=== PATIENT | male | born 1980 | race Caucasian/White ===

== ENCOUNTER 2024-03-06 08:14 | Outpatient (CLI) | payer OTHER, SELFPAY ==
--- OUTSIDE RECORDS SUMMARY | 2024-03-15 12:35 | XMS_ITS | Encounter Summary ---
Author Name Unknown Organization [facility] Address [address] [place] [address] Care Team Providers Care Yardage Control Operator Name Role Phone No Ref-Primary, Physician Primary Care Provider Reason for Visit * Reason Onset Date Comments MH/CD Inpatient 06/06/2023 Encounter Details Date Type Department Care Team ([facility] Contact Info) Description 06/06/2023 Telephone [facility] Behavioral Health Intake [address] [place] [phone] Generic, Behavioral Intake, MD MH/CD Inpatient Social History Tobacco Use Types Packs/Day Years Used Date Smoking Tobacco: Every Day Cigarettes Vaping Device Smokeless Tobacco: Never Alcohol Use Standard Drinks/Week Comments Yes 0 (1 standard drink = 0.6 oz pur e alcohol) daily Sex and Gender Information Value Date Recorded Sex Assigned at Not on file Gender Identity Not on file Sexual Orientation Not on file COVID-19 Exposure Response Date Recorded In the last 10 days, have yo u been in contact with someone who was confirmed or suspected to have Coronavirus/COVID-19? No / Unsure 06/06/2023 2:16 PM CDT documented as of this encounter Miscellaneous Notes * Telephone Encounter - Kathie Carvalho Prabhu - 06/06/2023 6:49 PM CDT S: [facility] , Provider Dr Barnhart calling at 6:30 pm with clinical on a 43 year old/Male presenting for alcohol detox. B: Pt presents for ETOH detox. Currently reports drinking 20 ounces vodka daily for years. Patient reports last use was 1 pm. Pt SAV: .26 Pt denies hx of DT Pt denies hx of seizures. Last seizure: N/A Pt endorsing the following symptoms of withdrawal: Shaky MSSA Score: Not done at this time Pt denies acute mental health or medical concerns. Pt denies other drug use: None Amount/frequency: N/A Does Pt have a detox care plan in [facility]? no Does pt present with specific needs, assistive devices, or exclusionary criteria? None Is the patient ambulating, eating and drinking in the ED? yes A: Pt meets criteria to be presented for IP detox admission. Patient is voluntary COVID Symptoms: No If yes, COVID test required Utox: Negative CMP: Abnormalities: Chloride 91, Anion 24, AST 162, ALT 150 CBC: WNL HCG: N/A R: Patient cleared and ready for behavioral bed placement: Yes Pt is meeting criteria for presentation to [facility] documented in this encounter Plan of Treatment Not on file documented as of this encounter Visit Diagnoses Not on filedocumented in this encounter Care Teams Yardage Control Operator Relationship Specialty Start Date End Date No Ref-Primary, Physician PCP - General 06/06/21 documented as of this encounter
--- OUTSIDE RECORDS SUMMARY | 2024-03-15 12:35 | XMS_ITS | Clinical Summary ---
Author Name Unknown Organization [facility] Address [address] [place] [address] Care Team Providers Care Investigator Utility Bill Complaints Name Role Phone No Ref-Primary, Physician Primary Care Provider Allergies No known active allergies Medications Medication Sig Dispensed Refills Start Date End Date Status cyclobenzaprine (FLEXERIL) 10 MG tablet TAKE 1/2 TO 1 TAB BY MOUTH AT BEDTIME NEEDED 04/13/2023 Active traZODone (DESYREL) 50 MG tablet Take 50 mg by mouth nightly as needed 03/14/2023 Active valACYclovir (VALTREX) 1000 mg tablet Take 2 tablets by mouth 2 times daily 05/20/2023 Active nicotine (NICODERM CQ) 21 MG/24HR 24 hr patchIndications:Alco hol dependence with uncomplicated intoxication (H) Place 1 patch onto the skin daily 30 patch 06/09/2023 Active multivitamin w/minerals (THERA-VIT-M) tabletIndications:Alc ohol dependence with uncomplicated intoxication (H) Take 1 tablet by mouth daily 30 tablet 06/09/2023 Active hydrOXYzine (ATARAX) 25 MG tabletIndications:Alc ohol dependence with uncomplicated intoxication (H) Take 1 tablet (25 mg) by mouth every 4 hours as needed for anxiety 30 tablet 1 06/08/2023 Active thiamine (B-1) 100 MG tabletIndications:Alc ohol dependence with uncomplicated intoxication (H) Take 1 tablet (100 mg) by mouth daily 30 tablet 06/09/2023 Active nicotine (NICORETTE) 2 MG gumIndications:Alcoho l dependence with uncomplicated intoxication (H) Place 1 each (2 mg) inside cheek every hour as needed for other (nicotine withdrawal symptoms) 30 each 06/08/2023 Active Active Problems Problem Noted Date Diagnosed Date Alcohol dependence with uncomplicated intoxicati on 06/06/2023 Migraines 06/06/2021 Social History Tobacco Use Types Packs/Day Years Used Date Smoking Tobacco: Every Day Cigarettes Vaping Device Smokeless Tobacco: Never Tobacco Cessation:Ready to Q uit: Not Asked; Counseling Given: Not Answered Alcohol Use Standard Drinks/Week Comments Yes 0 (1 standard drink = 0.6 oz pur e alcohol) daily Adolescent Education Answer Date Record ed Getting School Help Needed Not on file 08/13 Sex and Gender Information Value Date Recorded Sex Assigned at Not on file Gender Identity Not on file Sexual Orientation Not on file Last Filed Vital Signs Vital Sign Reading Time Taken Comments Blood Pressure 143/83 06/08/2023 11:37 AM CDT Pulse 83 06/08/2023 11:37 AM CDT Temperature 36.3 ??C (97.3 ??F) 06/08/2023 11:37 AM C DT Respiratory Rate 16 06/08/2023 11:37 AM CDT Oxygen Saturation 96% 06/08/2023 7:55 AM CDT Inhaled Oxygen Concentration - - Weight 84.1 kg (185 lb 6.5 oz) 06/06/2023 8:30 P M CDT Height 180.3 cm (5' 11) 06/06/2023 8:30 PM CDT Body Mass Index 25.86 06/06/2023 8:30 PM CDT Plan of Treatment Health Maintenance Due Date Last Done Comments ADVANCE CARE PLANNING 1979 ANNUAL REVIEW OF HM ORDERS 1979 CT COLONOGRAPHY 1979 FIT 1979 FLEX SIG 1979 NICOTINE/TOBACCO CESSATION COUNSELING Q 1 YR 1979 YEARLY PREVENTIVE VISIT 1979 sDNA (Cologuard) 1979 Pneumococcal Vaccine: Pediat rics (0 to 5 Years) and At-Risk Patients (6 to 64 Years) (1 of 2 - PCV) 1985 COLONOSCOPY 1989 COLORECTAL CANCER SCREENING 1989 HIV SCREENING 1994 HEPATITIS B IMMUNIZATION (2 of 3 - 19+ 3-dose series) 09/25/2002 08/28/2002 DTAP/TDAP/TD IMMUNIZATION (1 - Tdap) 01/21/2004 COVID-19 Vaccine ( - 2022-2 4 season) 2023 INFLUENZA VACCINE (#1) 2023 10/09/2011 PHQ-2 (once per calendar year) 2023 GLUCOSE 06/06/2026 06/06/2023 LIPID 06/07/2028 06/07/2023 HEPATITIS C SCREENING Completed 06/08/2023 HPV IMMUNIZATION Aged Out No longer e ligible based on patient's age to complete this topic IPV IMMUNIZATION Aged Out No longer e ligible based on patient's age to complete this topic MENINGITIS IMMUNIZATION Aged Out No l onger eligible based on patient's age to complete this topic RSV MONOCLONAL ANTIBODY Aged Out No l onger eligible based on patient's age to complete this topic Procedures Procedure Name Priority Date/Time Associated Diagnosis Comments HEPATITIS C SCREEN REFLEX TO HCV RNA QUANT AND GENOTYPE Routine 06/08/2023 8:45 AM CDT LIPID PROFILE Routine 06/07/2023 6:34 AM CDT COMPREHENSIVE METABOLIC PANEL STAT 06/06/2023 5:11 PM CDT from Last 3 Months or Most Recently Relevant to Health Maintenance Results * Hepatitis C Screen Reflex to HCV RNA Quant and Genotype (06/08/2023 8:45 AM CDT) Hepatitis C Antibody Nonreactive Nonreactive 06/08/2023 3:24 PM CDT [facility]/PROT/EN DO Blood STRUCTURE OF RIGHT UPPER LIMB / Unknown Venipuncture / Unknown 06/08/2023 8:45 AM CDT 06/08/2023 8:56 AM CDT Narrative [facility]PROT/ENDO - 06/08/2023 3:24 PM CDT Assay performance characteristics have not been established for newborns, infants, and children. Jeanna De Leon PA-C LAB - BLOOD ORDERABL ES [facility] C[facility]/PROT/ENDO [facility] Core/Prot/Endo [address] [facility] [address] Building, [address] [phone] * (ABNORMAL) Lipid panel (06/07/2023 6:34 AM CDT) Cholesterol 233(H) <200 mg/dL 06/07/2023 8:02 AM CDT [facility] Triglycerides 60 <150 mg/dL 06/07/2023 8:02 AM CDT [facility] Direct Measure HDL 104 >=40 mg/dL 06/07/2023 8:02 AM CDT [facility] LDL Cholesterol Calculated 117(H) <=100 mg/dL 06/07/2023 8:02 AM CDT [facility] Non HDL Cholesterol 129 <130 mg/dL 06/07/2023 8:02 AM CDT [facility] Blood BLOOD SPECIMEN / Unknown Venipuncture / Unknown 06/07/2023 6:34 AM CDT 06/07/2023 7:05 AM CDT Narrative [facility] - 06/07/2023 8:02 AM CDT Cholesterol Desirable: ??<200 mg/dL Triglycerides Normal: ??Less than 150 mg/dL Borderline High: ??150-199 mg/dL High: ??200-499 mg/dL Very High: ??Greater than or equal to 500 mg/dL Direct Measure HDL Female: ??Greater than or equal to 50 mg/dL Male: ??Greater than or equal to 40 mg/dL LDL Cholesterol Desirable: ??<100mg/dL Above Desirable: ??100-129 mg/dL Borderline High: ??130-159 mg/dL High: ??160-189 mg/dL Very High: ??>= 190 mg/dL Non HDL Cholesterol Desirable: ??130 mg/dL Above Desirable: ??130-159 mg/dL Borderline High: ??160-189 mg/dL High: ??190-219 mg/dL Very High: ??Greater than or equal to 220 mg/dL Bobby Li MD LAB - BLOOD ORDERABLES UR LABORATORY [facility] [address] [facility], [address] [place] [address], [facility] [phone] * (ABNORMAL) Comprehensive metabolic panel (06/06/2023 5:11 PM CDT) Sodium 139 136 - 145 mmol/L 06/06/2023 5:44 PM CDT UR LAB[facility] Potassium 4.2 3.4 - 5.3 mmol/L 06/06/2023 5:44 PM CDT UR [facility] Chloride 91(L) 98 - 107 mmol/L 06/06/2023 5:44 PM CDT UR [facility] Carbon Dioxide (CO2) 24 22 - 29 mmol/L 06/06/2023 5:44 PM CDT UR [facility] Anion Gap 24(H) 7 - 15 mmol/L 06/06/2023 5:44 PM CDT UR [facility] Urea Nitrogen 9.5 6.0 - 20.0 mg/dL 06/06/2023 5:44 PM CDT [facility] Creatinine 0.92 0.67 - 1.17 mg/dL 06/06/2023 5:44 PM CDT [facility] Calcium 9.2 8.6 - 10.0 mg/dL 06/06/2023 5:44 PM CDT [facility] Glucose 73 70 - 99 mg/dL 06/06/2023 5:44 PM CDT UR [facility] Alkaline Phosphatase 49 40 - 129 U/L 06/06/2023 5:44 PM CDT UR [facility] AST 162(H) 0 - 45 U/L 06/06/2023 5:44 PM CDT [facility] Comment:Reference intervals for this test were updated on 05/02/2023 to more accurately reflect our healthy population. There may be differences in the flagging of prior results with similar values performed with this method. Interpretation of those prior results can be made in the context of the updated reference intervals. ALT 150(H) 0 - 70 U/L 06/06/2023 5:44 PM CDT [facility] Comment:Reference intervals for this test were updated on 05/02/2023 to more accurately reflect our healthy population. There may be differences in the flagging of prior results with similar values performed with this method. Interpretation of those prior results can be made in the context of the updated reference intervals. Protein Total 8.0 6.4 - 8.3 g/dL 06/06/2023 5:44 PM CDT [facility] Albumin 5.2 3.5 - 5.2 g/dL 06/06/2023 5:44 PM CDT UR [facility] Bilirubin Total 1.2 <=1.2 mg/dL 06/06/2023 5:44 PM CDT UR [facility] GFR Estimate >90 >60 mL/min/1. 73m2 06/06/2023 5:44 PM CDT UR [facility] Blood BLOOD SPECIMEN / Unknown Venipuncture / Unknown 06/06/2023 5:11 PM CDT 06/06/2023 5:21 PM CDT Yoshi Barnhart MD LAB - BLOOD O RDERABLES UR LABORATORY [facility] [address] [facility], [address] [place] [address], [facility] [phone] from Last 3 Months or Most Recently Relevant to Health Maintenance Advance Directives For more information, please contact: [phone] * Full Code (Latest Code Status on File) Date Activated Date Inactivated Comments 06/06/2023 9:00 PM 06/08/2023 6:15 PM All basic an d advanced life-sustaining interventions are performed as appropriate Question Answer Comments Code status determined by: Discussion with thomas white/ legal decision maker Care Teams Investigator Utility Bill Complaints Relationship Specialty Start Date End Date No Ref-Primary, Physician PCP - General 06/06/21
--- OUTSIDE RECORDS SUMMARY | 2024-03-15 12:35 | XMS_ITS | Referral Summary ---
Author Name Unknown Organization [facility] Address [address] [place] [address] Care Team Providers Care Slab Miller Operator Name Role Phone No Ref-Primary, Physician [...] 06/06/2023 8:30 PM CDT Plan of Treatment Not on file Procedures Procedure Name Priority Date/Time Associated Diagnosis [...] Antibody Nonreactive Nonreactive 06/08/2023 3:24 PM CDT SPECIALTY CORE/PROT/EN DO Blood STRUCTURE OF RIGHT UPPER LIMB / Unknown Venipuncture / Unknown 06/08/2023 8:45 AM CDT 06/08/2023 8:56 AM CDT Narrative [facility]/PROT/ENDO - 06/08/2023 3:24 PM CDT Assay performance characteristics have not been established for newborns, infants, and children. Jeanna De Leon PA-C LAB - BLOOD ORDERABL ES [facility] SPECIAL[facility] CORE/PROT/ENDO [facility] Core/Prot/Endo [address] [facility] [address] [facility], [address] [phone] * (ABNORMAL) Lipid panel (06/07/2023 6:34 AM [...] MD LAB - BLOOD ORDERABLES UR LABORATORY [facility] Lab [address] [facility], [address] [place] [address], [facility] [phone] * (ABNORMAL) Comprehensive metabolic panel (06/06/2023 5:11 PM CDT) Pathologist [facility] Sodium 139 136 - 145 mmol/L 06/06/2023 [...] LAB - BLOOD O RDERABLES UR LABORATORY [facility] [address] [facility], [address] [place] [address], [facility] [phone] from Last 3 Months or Most Recently Relevant to Health Maintenance Advance Directives For more information, please contact: [phone] * Full Code (Latest Code Status on File) Date Activated Date Inactivated Comments 06/06/2023 9:00 PM 06/08/2023 6:15 PM All basic an d advanced life-sustaining interventions are performed as appropriate Question Answer Comments Code status determined by: Discussion with patie nt/ legal decision maker Care Teams Slab Miller Operator Relationship Specialty Start Date End Date No Ref-Primary, Physician PCP - General 06/06/21
== END 2024-03-06 08:15 | disposition home or self-care (01) ==
LOC: NFLDREF 03-15 12:33
PROVIDERS: PCP Family Medicine; Referring Provider Family Medicine; Visit Provider Family Medicine
DX: M54.50 Low back pain, unspecified (principal); N52.9 Male erectile dysfunction, unspecified; R53.83 Other fatigue; R79.89 Other specified abnormal findings of blood chemistry; E78.00 Pure hypercholesterolemia, unspecified; I10 Essential (primary) hypertension; Z12.5 Encounter for screening for malignant neoplasm of prostate
CPT/HCPCS: 80053; 80061; 84270; 84402; 84403; 84443; G0103

== ENCOUNTER 2024-07-10 08:14 | Outpatient (CLI) | payer OTHER, SELFPAY ==
--- OUTSIDE RECORDS SUMMARY | 2024-07-10 08:18 | XMS_ITS | Clinical Summary ---
Author Organization [facility] Address [address] [place] [address] Care Team Providers Care Public Opinion Survey Taker Name Role Phone No Ref-Primary, Physician Primary [...] COLONOGRAPHY 1979 FIT 1979 FLEX SIG 1979 YEARLY PREVENTIVE VISIT 1979 sDNA (Cologuard) 1979 Pneumococcal Vaccine: Pediat rics (0 to 5 Years) and At-Risk Patients (6 to 64 Years) (1 of 2 - PCV) 1985 COLONOSCOPY 1989 COLORECTAL CANCER SCREENING 1989 HIV SCREENING 1994 HEPATITIS B IMMUNIZATION (2 of 3 - 19+ 3-dose series) 09/25/2002 08/28/2002 DTAP/TDAP/TD IMMUNIZATION (1 - Tdap) 01/21/2004 COVID-19 Vaccine (1 - 2022-2 4 season) 2023 PHQ-2 (once per calendar year) 2023 INFLUENZA VACCINE (#1) 2024 10/09/2011 GLUCOSE 06/06/2026 06/06/2023 LIPID 06/07/2028 06/07/2023 HEPATITIS [...] [facility] C[facility]/PROT/ENDO [facility]/Prot/Endo [address], [address] [place] [address] * (ABNORMAL) Lipid panel (06/07/2023 6:34 AM [...] MD LAB - BLOOD ORDERABLES UR LABORATORY [facility] Acute Care Lab [address] [facility], [address] [place] [address], [facility] [phone] * (ABNORMAL) Comprehensive metabolic panel (06/06/2023 5:11 [...] LAB - BLOOD O RDERABLES UR LABORATORY [facility] Lab [address] [facility], [address] [place] [address], [facility] [phone] from Last 3 Months or Most Recently Relevant to Health Maintenance Advance Directives For more information, please contact: [phone] * Full Code (Latest Code Status on File) Date Activated Date Inactivated Comments 06/06/2023 9:00 PM 06/08/2023 6:15 PM All basic an d advanced life-sustaining interventions are performed as appropriate Question Answer Comments Code status determined by: Discussion with thomas white/ legal decision maker Care Teams Public Opinion Survey Taker Relationship Specialty Start Date End Date No Ref-Primary, Physician PCP - General 06/06/21
--- OUTSIDE RECORDS SUMMARY | 2024-07-10 08:18 | XMS_ITS | Encounter Summary ---
Author Organization [facility] Address [address] [place] [address] Care Team Providers Care Supervisor Joiners Name Role Phone No Ref-Primary, Physician Primary Care Provider Reason for Visit * Reason Onset Date Comments MH/CD Inpatient 06/06/2023 Encounter Details Date Type Department Care Team ([facility] Contact Info) Description 06/06/2023 Telephone [facility] Behavioral Health Intake [address] [place] [phone] Generic, Behavioral Intake, MD MH/CD Inpatient Social [...] encounter Miscellaneous Notes * Telephone Encounter - SaleemGerardo diazhortencia Pelletier - 06/06/2023 6:49 PM CDT S: [facility] , Provider Dr Barnhart calling at 6:30 [...] Pt have a detox care plan in [facility]? no Does pt present with specific needs, [...] on filedocumented in this encounter Care Teams Supervisor Joiners Relationship Specialty Start Date End Date No Ref-Primary, Physician PCP - General 06/06/21 documented as of this encounter
--- OUTSIDE RECORDS SUMMARY | 2024-07-10 08:18 | XMS_ITS | Referral Summary ---
Author Organization [facility] Address [address] [place] [address] Care Team Providers Care Surgical Asst Name Role Phone No Ref-Primary, Physician Primary [...] [facility] SPECIAL[facility] CORE/PROT/ENDO [facility] Special[facility] Core/Prot/Endo [address] [facility], [address] [phone] * (ABNORMAL) Lipid panel (06/07/2023 6:34 AM [...] MD LAB - BLOOD ORDERABLES UR LABORATORY [facility] Lab [address] [facility], [address] [place] [address], [facility] [phone] * (ABNORMAL) Comprehensive metabolic panel (06/06/2023 5:11 [...] LAB - BLOOD O RDERABLES UR LABORATORY [facility] [address] [facility], [address] [place] [address], [facility] [phone] from Last 3 Months or Most Recently Relevant to Health Maintenance Advance Directives For more information, please contact: [phone] * Full Code (Latest Code Status on File) Date Activated Date Inactivated Comments 06/06/2023 9:00 PM 06/08/2023 6:15 PM All basic an d advanced life-sustaining interventions are performed as appropriate Question Answer Comments Code status determined by: Discussion with patie nt/ legal decision maker Care Teams Surgical Asst Relationship Specialty Start Date End Date No Ref-Primary, Physician PCP - General 06/06/21
== END 2024-07-10 08:15 | disposition home or self-care (01) ==
PROVIDERS: PCP Family Medicine; Visit Provider Family Medicine
DX: Z01.818 Encounter for other preprocedural examination (principal); R79.89 Other specified abnormal findings of blood chemistry; I10 Essential (primary) hypertension
CPT/HCPCS: 80053

== ENCOUNTER 2025-03-12 08:22 | Outpatient (CLI) | payer OTHER, SELFPAY | END 2025-03-12 08:23 | disposition home or self-care (01) | LOC: NFLDREF 03-14 02:22 | PROVIDERS: PCP Family Medicine; Referring Provider Family Medicine; Visit Provider Family Medicine | DX: Z00.01 Encounter for general adult medical examination with abnormal findings (principal); R79.89 Other specified abnormal findings of blood chemistry; R53.83 Other fatigue; Z11.59 Encounter for screening for other viral diseases; Z13.6 Encounter for screening for cardiovascular disorders; Z13.21 Encounter for screening for nutritional disorder | CPT/HCPCS: 80053; 80061; 82172; 82306; 82670; 84270; 84402; 84403; 84443; 86803 ==